=== PATIENT | female | born 1995 | race Caucasian/White ===

== ENCOUNTER 2019-08-25 16:58 | Inpatient (IN) | payer OTHER ==
[~2019-08-25] VITALS: Ht 172.7 cm; Wt 99.0 kg
[2019-08-25 17:38] VITALS: BP 141/81
[2019-08-25] MEDS ORDERED: LR 1,000 ML IV SCH (17:40)
[2019-08-25] MEDS ORDERED: LACTATED RINGER'S 1000 ML IV STA (17:40)
[2019-08-25] MEDS ORDERED: PRENTAB9 PO (17:57)
[2019-08-25] MEDS ORDERED: IRON27TA2 PO (17:57)
[2019-08-25] MEDS ORDERED: VITA500C24 PO (17:57)
[2019-08-25] MEDS ORDERED: miSOPROStol 50 MCG 1/2 TAB (S0191) SL ONE (19:00)
[2019-08-25 19:05] LABS: HEMATOCRIT 30.9 % (36.0-47.0); HEMOGLOBIN 10.1 g/dl (12.0-15.5); MEAN CORPUSCULAR HEMOGLOBIN 30.9 pg (27.0-33.0); MEAN CORPUSCULAR HGB CONC 32.7 g/dl (32.0-36.5); MEAN CORPUSCULAR VOLUME 94.5 fl (80.0-96.0); PLATELET COUNT, AUTOMATED 345 10^3/uL (150-450); RED BLOOD COUNT 3.27 10^6/uL (4.00-5.40); WHITE BLOOD COUNT 8.1 10^3/uL (4.0-10.0)
--- NOTE | 2019-08-25 19:41 | HPEPDOC ---
Obstetrical History & Physical General Date of Admission Aug 25, 2019 at 16:58 Primary Care Physician: Renetta Hernandez MD History of Present Illness OB Considerations: GHTN Hx of childhood asthma - last inhaler use in middle school Anemia - Admission HCT 30.9 VZV non immune 23y/o @ 37+3 wks by LMP c/w 9 wk US (JOSE DANIEL [id number]) presents for induction of labor for gestational hypertension. Patient denies contractions, LOF, vaginal bleeding. She endorses active movement. Reports mild headache this morning, now resolved. Denies RUQ pain/visual changes. Chief Complaint: Gestational Hypertension, Induction of labor Information Provided By: Patient Age: 23 : 3 Term: 2 Pre-term: 0 Abortions: 0 Livin Care Care: Good Care Dating Final EDC: Sep 12, 2019 Final EDC for Daily Update: Sep 12, 2019 Final EDC by: LMP LMP: Dec 06, 2018 1st Trimester Date: Feb 13, 2019 Estimated Date of Confinement: Sep 12, 2019 EGA at Admission: 37.3 Antepartum Course Diagnos(e)s Gestational Hypertension Asthma Anemia Height (inches): 68 Pre- weight (lbs.): 189 Admission Weight (lbs.): 217.8 Change in Weight (lbs.): 28.8 Past Medical History Past Obstetrical History #1: Past Obstetrical History: Multigravida Date of Delivery: Apr 05, 2013 Gestation: 38 Type of Delivery: Spontaneous Vaginal Del. Sex of Infant: Female Weight of Infant (grams): 7.11 Complications: No Past Obstetrical History #2: Past Obstetrical History: Multigravida Date of Delivery: March 05, 2018 Gestation: 38 Type of Delivery: Spontaneous Vaginal Del. 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 Past Medical History Medical History Asthma - no inhaler use since middle school Anemia - admission HCT 30.9 Surgical History: Denies/None Family History Family History Grandmother with breast cancer Denies uterine, ovarian or colon cancer Denies bleeding/clotting disorders Social History Marital Status: Family situation: Spouse/partner home Psychosocial History: No pertinent psych hx * Smoker: non-smoker Alcohol: Denies Drugs: denies Abuse Violence Screening Have you been hit/kicked/slapp: No Have you been sexually assault: No Imunizations Tdap status: needs Influenza Status: needs Allergies Coded Allergies: No Known Allergies (Unverified , 08/25/19) Medications Scheduled Ascorbic Acid (Vitamin C) 500 Mg Capsule, 500 MG PO BID Ferrous Gluconate (Iron) 236 Mg Tablet, 1 TAB PO BID No.137/Iron/Folic Acd ( Vitamin Tablet) 1 Each Tablet, 1 TAB PO DAILY Physical Examination Physical Examination GENERAL: Alert and oriented times three. BREAST: . ABDOMEN: Gravid and non-tender to touch. FETUS: Is vertex (VTX) by sterile vaginal examination (SVE), fetus is vertex (VTX) by Sam. Vertex by TAUS. EFW 3600g HEART RATE: Regular rate and rhythm. LUNGS: Clear to auscultation (CTA). EXTREMITIES: No edema. No clonus. Deep tendon reflexes (DTRs) + 2. Vital Signs/I&O BP 141/81 HR 16 RR 16 SpO2 100% RA Laboratory Data 24H LABS Laboratory Tests 2 08/25/19 17:22: Serology Scanned Report Hepatitis B Testing Pre-eclampsia profile Completed at [facility] on Oct: Pr/Cr Ratio: 0.157 24H Urine Protein: 133mg CBC: 6.90>10.8/32.4<396 AST 15 ALT 18 Cr 0.67 Pertinent Laboratoy Data Blood Type: AB+ RBC Antibody Screen: Negative HIV: Negative Hepatitis B: Negative Hepatitis C: Unknown Rapid Plasma Reagin: Nonreactive Rubella: Immune Varicella: Nonreactive Chlamydia/Gonorrhea: Negative Group B Streptococcus: Unknown Glucose Tolerance Test: 126 Anatomy Ultrasound Placenta Location: Anterior Normal Anatomy: Yes Placenta Previa: No Estimated Weight (grams): 655 Steroid Therapy Steroid Therapy: No Vaginal Examination Dilation: 2cm Effacement: 50% Station: -2 Cervical Consistency: Medium Cervical Position: Posterior Presentation: Cephalic presentation Position: Vertex (occiput) Assessment Variability: Moderate Accelerations: Other (Ideterminent baseline) Decelerations: Other (Ideterminent baseline) Heart Patterns: Tachycardia (Initially in 170s) Tocometer Contractions: Yes Frequency: irregular, greater than 15 min/apart Duration: less than 60 seconds Strength: palpated as mild Multi-drug resistant Organism: No history of MDRO Assessment/Plan Assessment 23y/o @ 37+3 wks admitted for induction of labor for gestational hypertension. Plan Admit and orient. Fluid bolus due to indeterminant baseline. Wholesale Account Manager and consent. Diet: Regular. Group B Streptococcus (GBS): Unk. Will treat with prolonged rupture or fever occur. Labs and intravenous (IV) per unit protocol. Counseled on Pitocin and induction of labor (IOL). Lactated Ringers (LR): Bolus 1,000 mL, then at 125 mL/hr. Continue to monitor BPs, IV antihypertensives/magnesium sulfate as indicated for persistent HTN >160/110. Anticipate normal spontaneous delivery (). C-S as appropriate. Labor and Delivery Counseling Discussed with patient procedures performed on labor and delivery to include external monitoring and tocometry. Discussed use of internal monitoring with FSE/IUPC. Discussed induction of labor methods and medication for pain control. Discussed episiotomy and tearing to vagina, both of which would be repaired with absorbable sutures that would dissolve on their own. Discussed use of forceps and/or vacuum to assist with delivery. Discussed risks of delivery to include infection, treated with antibiotics, bleeding which may require a blood transfusion with subsequent risk of blood borne illness (hepatitis/HIV) or transfusion reaction. Discussed risks of delivery including injury to baby, need for emergency , need for additional procedures, as indicated. All questions were answered to patent's apparent satisfaction. Renetta Hernandez MD Aug 25, 2019 18:13
[2019-08-25 20:32] VITALS: BP 134/71
[2019-08-25 22:26] VITALS: BP 140/88
[2019-08-26] VITALS (13 sets, daily range): BP systolic 117–177; BP diastolic 59–84
[2019-08-26] MEDS ORDERED: OXYTOCIN 30 UNITS IN 0.9% NaCl 500ML IV BAG (J2590) As Ordered ONE (00:57)
--- NOTE | 2019-08-26 01:02 | IPNPDOC ---
Text Note Date of Service The patient was seen on 08/26/19. NOTE Ob Considerations: Anemia HCT 30.9 GHTN Childhood asthma 23y/o @ 37+4 wks admitted for induction of labor for gestational hypertension. To room 4 hours s/p Cytotec. Patient reports feeling contractions, some stronger than others. VS: Reviewed Normotensive to mild range NST: 145, mod duglas +accels, no decels TOCO: not picking up contractions while patient on her side DCE: /-1, Cephalic, Mid, Medium consistency A/p: 23y/o @ 37+4 wks admitted for IOL for GHTN. Normal to mild range BPs. -GBS swab collected Sunday; still pending in [facility]. Will treat with fever, ROM > 18 hrs -Begin Pitocin per protocol -Repeat DCE 4-6 hours or sooner PRN; will consider AROM with next exam -Continuous monitoring -All questions answered to patient's apparent satisfaction VS,Yuly, I+O VS, Eanbone, I+O Laboratory Tests 08/25/19 18:47 Vital Signs Date Time Temp Pulse Resp B/P (MAP) Pulse Ox O2 Delivery O2 Flow Rate FiO2 08/25/19 17:38 98.6 85 16 141/81 (101) 100 Room Air I&O- Last 24 Hours up to 6 AM 08/26/19 05:59 Intake Total 1500 ml Output Total 450 ml Balance 1050 ml Renetta Hernandez MD Aug 26, 2019 01:01
[2019-08-26] MEDS ORDERED: OXYTOCIN DRIP 30 UNITS in IV 1 EA IV SCH ×2 (01:15→04:14)
[2019-08-26] MEDS ORDERED: NALBUPHINE HCL 10 MG/ML AMP (J2300) IV PRN (02:00)
[2019-08-26] MEDS ORDERED: NALBUPHINE HCL 10 MG/ML AMP (J2300) IM PRN (02:00)
[2019-08-26] MEDS ORDERED: RHOGAM 300 MCG (1500 IU) INJ (J2790) IM SCH (04:15)
[2019-08-26] MEDS ORDERED: IBUPROFEN 800 MG TAB PO PRN (04:15)
[2019-08-26] MEDS ORDERED: IBUPROFEN 600 MG TAB PO PRN (04:15)
[2019-08-26] MEDS ORDERED: ACETAMINOPHEN TAB 650MG DOSE (2X325MG) PO PRN (04:15)
[2019-08-26] MEDS ORDERED: METHYLERGONOVINE MALEATE 0.2 MG TAB PO PRN (04:15)
[2019-08-26] MEDS ORDERED: DIBUCAINE 1% OINTMENT 30GM TOP PRN (04:15)
[2019-08-26] MEDS ORDERED: MEASLES,MUMPS,RUBELLA VACCINE INJ (MMR-II) (90707) SC SCH (04:15)
[2019-08-26] MEDS ORDERED: DOCUSATE SODIUM 100 MG CAP PO PRN (04:15)
[2019-08-26] MEDS ORDERED: ACETAMINOPHEN 500 MG TAB PO PRN (04:15)
[2019-08-26] MEDS: PRENATAL VITAMINS CHEWABLE TABLET PO SCH (09:17)
[2019-08-27 06:02] VITALS: BP 129/63
[2019-08-27] MEDS ORDERED: IBUP80TA PO (07:35)
[2019-08-27] MEDS ORDERED: DIBU10OI TOP (07:35)
[2019-08-27] MEDS ORDERED: DOCU100C16 PO (07:35)
[2019-08-27] MEDS ORDERED: ACET-683 PO (07:35)
[2019-08-27] MEDS ORDERED: INFLUENZA QUADRIVALENT PF VACCINE 0.5ML SYRINGE (90686) IM ONE (09:00)
[2019-08-27] MEDS: PRENATAL VITAMINS CHEWABLE TABLET PO SCH (10:29)
--- NOTE | 2019-08-27 10:59 | DSES ---
DATE OF ADMISSION: 08/25/2019 DATE OF DISCHARGE: 08/27/2019 23-year-old 3 now para 3 was admitted for induction of labor at 37 and 3 weeks of gestation because of gestational hypertension. Had an epidural in place, spontaneous vaginal delivery female 5 pounds 15 ounces, scores and gram weight are undisclosed. On her first day we discussed phlebitis, cystitis, mastitis, endometritis, cellulitis, diet, exercise, pain management, perineal, breast and wound care. The patient is presently breast-feeding, requesting discharge as she has two other siblings at home. Admitting hemoglobin 10.1, hematocrit 30.9 and platelets were 345. Her day 1 blood pressure 129/60, respirations 16, pulse 63 and temperature is 99.0. The rest of the examination was unremarkable. She is normocephalic, atraumatic. Neck full range of motion. Pupils equal and reactive to light. Distal pulses symmetric. No evidence of DVT, PE or superficial phlebitis. Chest is clear bilaterally to bases. No wheezes or rhonchi. No CVA tenderness. She had a she is presently breast-feeding and doing well, anxious to go home. Medications were dispensed at [facility] and this was communicated to the patient. 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 All questions were answered. 20-minute discussion. edited: 08/28/2019 0718 pedro luis MORENO
--- NOTE | 2019-09-02 16:14 | DNPDOC ---
[facility] Delivery Note Delivery Note DATE OF DELIVERY: [id number] PREDELIVERY DIAGNOSIS: 37+4/7 weeks' gestation and labor. POST DELIVERY DIAGNOSIS: Delivered. PROCEDURE: Spontaneous vaginal delivery. TURPENTINE FARMER: Dr. Hernandez ANESTHESIA: None ESTIMATED BLOOD LOSS: 100 mL. FINDINGS: 5 pound 15 ounce female infant, Score 9/9, no nuchal cord. DELIVERY SUMMARY: Patient is a 23-year-old 3 now para 2002 who was admitted to labor and delivery induction of labor for gestational hypertension. She received single dose of Cytotec and was started on Pitocin. She progressed with Nubain for analgesia to C/C/+3 at which time provider was called to the room. With excellent maternal effort, delivered OA, restituted ROT. The left anterior shoulder delivered with gentle downward traction and right posterior shoulder delivered with upward guidance. No nuchal cord noted. Cord was clamped x2 and cut by patient. to maternal chest. Cord blood collected for analysis. The placenta delivered intact, marginal insertion, 3vc. Fundus firm at U-2. Systematic examination revealed an intact perineum. Sponge count correct x2. Mother and infant stable when provider left the room. EBL 100cc. Renetta Hernandez MD Aug 26, 2019 04:09
== END 2019-08-27 12:40 | disposition home or self-care (01) | DRG 807 ==
LOC: M LDI 16:58 → M OBS 08-26 06:47
PROVIDERS: ADMIT Obstetrics & Gynecology; ATTEND Obstetrics & Gynecology
PROC: 3E0P7GC Introduction of Other Therapeutic Substance into Female Reproductive, Via Natural or Artificial Opening (ICD-10-PCS; 2019-08-25)
PROC: 10E0XZZ Delivery of Products of Conception, External Approach (ICD-10-PCS; principal; 2019-08-26)
DX: O13.4 Gestational [pregnancy-induced] hypertension without significant proteinuria, complicating childbirth (principal); Z37.0 Single live birth; Z3A.37 37 weeks gestation of pregnancy; O99.02 Anemia complicating childbirth; D64.9 Anemia, unspecified

== ENCOUNTER → 2020-04-06 | Outpatient (CLI) | payer OTHER ==
[~2020-04-06] MED LIST: ACET-683 PO; DIBU10OI TOP; DOCU100C16 PO; IBUP80TA PO; IRON27TA2 PO; PRENTAB9 PO; VITA500C24 PO
--- NOTE | 2020-04-06 23:35 | REP ---
RIGHT BREAST ULTRASOUND: Real-time sonographic evaluation of right breast performed. Patient has a history of clear nipple discharge with painful palpable lump upper outer quadrant. Ultrasound of this area demonstrates no discrete cystic or solid mass. IMPRESSION: ACR 2, benign. No discrete cystic or solid mass seen in the upper outer right breast at the site of the reported palpable lump. Clinical correlation and followup recommended.
== END ==
LOC: M WHC 14:19
PROVIDERS: ATTEND Nurse Practitioner
DX: N63.11 Unspecified lump in the right breast, upper outer quadrant (principal); N64.52 Nipple discharge; Z80.3 Family history of malignant neoplasm of breast

== ENCOUNTER 2021-02-02 20:01 | Inpatient (IN) | payer OTHER ==
[~2021-02-02] VITALS: Ht 172.7 cm; Wt 101.1 kg
[2021-02-02 20:23] VITALS: BP 139/81
[2021-02-02] MEDS ORDERED: LACTATED RINGER'S 1000 ML IV STA (20:34)
[2021-02-02] MEDS ORDERED: LR 1,000 ML IV SCH (20:34)
[2021-02-02] MEDS ORDERED: OXYTOCIN DRIP 30 UNITS in IV 1 EA IV PRN (20:35)
--- NOTE | 2021-02-02 21:05 | HPEPDOC ---
Obstetrical History & Physical General Date of Admission Feb 02, 2021 at 20:47 History of Present Illness 25 yo at 38+2 weeks gestation presented to L&D with the complaint of re gular, painful contractions. She denies any vaginal bleeding or leakage of fluid. She endorses feeling movement. Chief Complaint: Contractions, term Information Provided By: Patient Age: 25 : 4 Term: 3 Pre-term: 0 Abortions: 0 Livin Care Care: Good Care Dating Final EDC: Feb 14, 2021 Final EDC for Daily Update: Feb 14, 2021 Final EDC by: LMP (JOSE DANIEL set by LMP of [id number] c/w 12+3 week US on [id number]) LMP: May 10, 2020 1st Trimester Date: Aug 05, 2021 Antepartum Course Diagnos(e)s Short interval Obesity --> pre BMI 30 Hx of GHTN ---> normal baseline labs Anemia History of depression Hx of asthma Past Medical History Past Obstetrical History : Past Obstetrical History: Multigravida ( in 2012, 2017, and 2018 --> pelvis proven to 7lbs 11oz) 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 Past Medical History Medical History Asthma PPD depression obesity Surgical History: Denies/None Family History Significant Family History: No pertinent family hx Social History Marital Status: Family situation: Spouse/partner home Psychosocial History: Other (History of PPD depression and was previously on zoloft for 3 months) * Smoker: non-smoker Alcohol: Denies Drugs: denies Imunizations Tdap status: current Influenza Status: declined Allergies Coded Allergies: No Known Allergies (Unverified , 02/02/21) Medications Scheduled Ascorbic Acid (Vitamin C) 500 Mg Capsule, 500 MG PO BID Ferrous Gluconate (Iron) 236 Mg Tablet, 1 TAB PO BID No.137/Iron/Folic Acd ( Vitamin Tablet) 1 Each Tablet, 1 TAB PO DAILY Scheduled PRN Acetaminophen (Acetaminophen) 500 Mg Tablet, 1,000 MG PO Q6HP PRN for PAIN SCALE 6-10 Dibucaine (Dibucaine) 28 Gm Oint...g., 0 DOSE TOP Q4HP PRN for PAIN Docusate Sodium (Docusate Sodium) 100 Mg Capsule, 100 MG PO QHSP PRN for CONSTIPATION Ibuprofen (Ibuprofen) 800 Mg Tablet, 800 MG PO Q8HP PRN for PAIN SCALE 6-10 Physical Examination Physical Examination GENERAL: Alert and oriented times three. ABDOMEN: Gravid and non-tender to touch. FETUS: Is vertex (VTX) by sterile vaginal examination (SVE), EXTREMITIES: No edema. Laboratory Data Urine Culture: No Growth Pertinent Laboratoy Data Blood Type: AB+ RBC Antibody Screen: Negative HIV: Negative Hepatitis B: Negative Hepatitis C: Unknown Rapid Plasma Reagin: Nonreactive Rubella: Immune Varicella: Immune Chlamydia/Gonorrhea: Negative Group B Streptococcus: Negative Quad Screen Test: Declined Cystic Fibrosis: Unknown Glucose Tolerance Test: 88 (early 1hr GTT 88, repeat 120) Anatomy Ultrasound Ultrasound Date: Sep 28, 2020 Placenta Location: Anterior Normal Anatomy: Yes Placenta Previa: No Steroid Therapy Steroid Therapy: No Vaginal Examination Dilation: 7 cm Effacement: 90% Station: -1 Cervical Consistency: Soft Cervical Position: Anterior Presentation: Cephalic presentation Position: Vertex (occiput) Assessment Heart Rate (FHR): 135 Variability: Moderate Accelerations: Positive Decelerations: None Tocometer Contractions: Yes Frequency: regular, every 1-3 min. Strength: palpated as strong Assessment/Plan Assessment 25 yo at 38+2 weeks gestation presented to L&D in active labor. Plan Admit for expectant management of labor. Will augment as clinically indicated. Apply IV fluids. Labs per L&D protocol. Clear liquid diet. GBS negative. Patient may have epidural if desired. Anticipate . Labor and Delivery Counseling Labor and Delivery counseling We will deliver your baby through the vagina with possible assistance of forceps or vacuum device if needed for maternal or indications. Forceps and vacuum are devices that can assist with vaginal delivery when normal pushing efforts cannot achieve delivery on their own or when delivery is needed in an emergency for baby's well-being. Medications may be required to induce or augment (help) your labor in order to achieve a vaginal delivery. An episiotomy may be required to help your baby to delivery vaginally. You may also require repair of any lacerations or tears of your vagina or vulva that are caused by delivery. In some cases, emergencies can occur that require an emergency section delivery so quickly that there may not be enough time to stop and complete consent forms for section. Understand that if this occurs, your providers will discuss the need for a section with you before they proceed with surgery. section is the delivery of your baby through an incision in your abdomen. In some situations, section may be safer to mom and baby than continuing labor and is only performed when clinically indicated. Risks of vaginal delivery include but are not limited to: Bleeding, infection, injury to the vagina, pelvic structures, injury to baby, damage to the uterus, reactions to anesthesia, uterine rupture, risk of hysterectomy for life threatening bleeding, or . Medications used to induce or augment labor may increase your risk for infection, uterine tachysystole, uterine rupture, heart rate abnormalities, need for emergency delivery or possible hysterectomy, and hemorrhage. Additional risks for use of forceps and vacuum include: increased risk of perineal and vaginal lacerations, risk of urinary or bowel incontinence, increased risk of injury to baby with bruising, scratches, hematomas on the head, or intracranial bleeding. Ms. Hicks appears to understand these risks and elects to proceed with her labor at this location. She also consents to a blood transfusion if necessary. All patient questions answered. DO FEDERICO Perez CHRISTOPHER J. DO Feb 02, 2021 21:05
[2021-02-02 21:09] LABS: HEMATOCRIT 30.7 % (36.0-47.0); HEMOGLOBIN 9.7 g/dl (12.0-15.5); MEAN CORPUSCULAR HEMOGLOBIN 27.9 pg (27.0-33.0); MEAN CORPUSCULAR HGB CONC 31.6 g/dl (32.0-36.5); MEAN CORPUSCULAR VOLUME 88.2 fl (80.0-96.0); PLATELET COUNT, AUTOMATED 318 10^3/uL (150-450); RED BLOOD COUNT 3.48 10^6/uL (4.00-5.40); WHITE BLOOD COUNT 6.8 10^3/uL (4.0-10.0)
[2021-02-02] MEDS ORDERED: OXYTOCIN DRIP 30 UNITS in IV 1 EA IV SCH (21:46)
[2021-02-02] MEDS ORDERED: RHOGAM 300 MCG (1500 IU) INJ (J2790) IM SCH (21:50)
[2021-02-02] MEDS ORDERED: ACETAMINOPHEN TAB 650MG DOSE (2X325MG) PO PRN (21:50)
[2021-02-02] MEDS ORDERED: IBUPROFEN 800 MG TAB PO PRN (21:50)
[2021-02-02] MEDS ORDERED: ACETAMINOPHEN 500 MG TAB PO PRN (21:50)
[2021-02-02] MEDS ORDERED: DIBUCAINE 1% OINTMENT 30GM TOP PRN (21:50)
[2021-02-02] MEDS ORDERED: MEASLES,MUMPS,RUBELLA VACCINE INJ (MMR-II) (90707) SC SCH (21:50)
[2021-02-02] MEDS ORDERED: DOCUSATE SODIUM 100MG CAPSULE PO PRN (21:50)
--- NOTE | 2021-02-02 21:57 | DNPDOC ---
[facility] Delivery Note Delivery Note DATE OF DELIVERY: 02Feb2021 at ~2130 PREDELIVERY DIAGNOSIS: 38+2 weeks' gestation and active labor. POST DELIVERY DIAGNOSIS: Delivered. PROCEDURE: Spontaneous vaginal delivery ANESTHESIA ASSISTANT: Dr. Hernandez ANESTHESIA: None ESTIMATED BLOOD LOSS: 200 mL. FINDINGS: 7 pound 8 ounce male infant, Score 9/9, Footling cord X2 DELIVERY SUMMARY: Monika progressed rapidly to C/C/+1 and felt a strong urge to push. AROM was performed productive of clear fluid. The bed was broken down and she was prepped for delivery. With excellent effort Monika's delivered in less than 5 minutes of pushing. Presentation was CAYLA with restitution to ROT. The left anterior shoulder delivered with gentle guidance followed easily by the remainder of the body. There was a double footling cord that was reduced after delivery. The baby was dried and stimulated on the field and a bulb suction was used. The cried vigorously and was placed on the maternal abdomen for skin to skin contact. The three vessel cord was then clamped and cut by the infant's mother under my direction and after an appropriate time delay. 3rd stage was completed with gentle traction on the cord and it was productive of an intact placenta. The uterine fundus was firmed with massage and pitocin was administered IV bolus. Inspection of the cervix, vagina, labia, and perineum revealed no lacerations. The fundus was palpated again and was firm. Sponge and instrument counts were correct X2. Mother and stable when I left the room. DO FEDERICO Perez CHRISTOPHER J. DO Feb 02, 2021 21:57
[2021-02-02 22:58] VITALS: BP 128/70
--- NOTE | 2021-02-03 06:41 | IPNPDOC ---
Progress Note Date of Service: Feb 03, 2021 Progress Note Ms. Hicks is a 25 yo G4 now P4 who underwent an uncomplicated yesterday evening around 0 after being admitted for active labor. She is recovering on the unit. No acute events overnight. This morning Monika is overall doing well. She is ambulating, voiding, tolerating a regular diet, has minimal pain, and minimal lochia. Vitals - VSS, afebrile normotensive, non tachycardic General - AAOX3, sitting up in bed, pleasant and conversant, NAD Abdomen - Fundus firm at U-2. No fundal tenderness Extremities - No edema Urine output - appropriate Monika is doing well and is making an appropriate recovery. Continue to encourage ambulation and . Continue routine care. Anticipate discharge home tomorrow. Opal Hernandez DO VS, I&O, 24H, Fishbone Vital Signs/I&O Vital Signs Date Time Temp Pulse Resp B/P (MAP) Pulse Ox O2 Delivery O2 Flow Rate FiO2 02/02/21 22:58 97.9 56 16 128/70 (89) I&O- Last 24 Hours up to 6 AM 02/03/21 06:00 Output Total 200 ml Balance -200 ml Laboratory Data 24H LABS Laboratory Tests 2 02/02/21 20:50: Nucleated Red Blood Cells % (auto) 0.0, Syphilis Serology NONREACTIVE 02/02/21 20:52: Serology Scanned Report Hepatitis B Testing CBC/BMP Laboratory Tests 02/02/21 20:50 OPAL HERNANDEZ DO Feb 03, 2021 06:41
[2021-02-03] MEDS: PRENATAL VITAMINS CHEWABLE TABLET PO SCH (08:15)
[2021-02-03] MEDS: IBUPROFEN 600MG TAB PO PRN ×2 (12:09→20:25)
[2021-02-03 18:00] VITALS: BP 131/70
[2021-02-04 05:43] VITALS: BP 127/77
--- NOTE | 2021-02-04 07:31 | IPNPDOC ---
Progress Note Date of Service: Feb 04, 2021 Day#: 2 Progress Note SUBJECT: Monika is a 25year-old 4 now Para 3003 status post uncomplicated spontaneous vaginal delivery at 38+2 weeks' at approximately 2130 hours [id number] of a Male , doing well day #2. She has been ambulating, voiding spontaneously without issue and tolerating regular diet. Breast feeding without issue. Reports lochia is continuing to lighten. OBJECTIVE: VITAL SIGNS: Within normal limits, afebrile. Alert and oriented times three. Abdomen: Fundus firm at U-2. Soft, NTTP. Scant lochia. ASSESSMENT: PP Day #2, normal involution, stable and progressing well. without issue. PLAN: 1. Discharge to home today. 2. Tylenol and Motrin for pain. 3. Encourage breast feeding on demand and ambulation. 4. Minipill for contraception for now, desires Nexplanon and spouse to have vasectomy. 5. Routine PP visit in 6 weeks in clinic. 6. Discussed return precautions at length. VS, I&O, 24H, Fishbone Vital Signs/I&O Vital Signs Date Time Temp Pulse Resp B/P (MAP) Pulse Ox O2 Delivery O2 Flow Rate FiO2 02/04/21 05:43 97.4 66 16 127/77 (94) 99 Room Air SUSANA KENNY CNM Feb 04, 2021 07:31
--- NOTE | 2021-02-04 07:37 | OBDS ---
[facility] Obstetrical Discharge Sum. Obstetrical Discharge Summary Date: Feb 04, 2021 : 4 Term: 3 Pre-term: 0 Abortions: 0 Livin Infant Sex: Male Weight: pounds (7), ounces (8) A/P, Post Course List any complications Admission diagnosis: Labor Discharge diagnosis: Delivered Condition at Discharge: Stable Discharge Instructions: Discharged to home with return and safety precautions. Activity: Ad Jhoana; rest as needed, encourage frequent . Diet: Regular Medications: Routine PP meds and mini-pill at [facility] Follow-up: routine PP appointment at 6 weeks. SUSANA KENNY CNM Feb 04, 2021 07:37
[2021-02-04] MEDS ORDERED: INFLUENZA QUADRIVALENT PF VACCINE 0.5ML SYRINGE IM ONE (09:00)
[2021-02-04] MEDS: PRENATAL VITAMINS CHEWABLE TABLET PO SCH (09:02)
[2021-02-04 09:59] VITALS: BP 127/77
== END 2021-02-04 12:25 | disposition home or self-care (01) | DRG 807 ==
LOC: M LDO 20:01 → M LDI 20:47 → M OBS 22:47
PROVIDERS: ADMIT Obstetrics & Gynecology; ATTEND Obstetrics & Gynecology
PROC: 10E0XZZ Delivery of Products of Conception, External Approach (ICD-10-PCS; principal; 2021-02-02)
PROC: 10907ZC Drainage of Amniotic Fluid, Therapeutic from Products of Conception, Via Natural or Artificial Opening (ICD-10-PCS; 2021-02-02)
DX: O99.214 Obesity complicating childbirth (principal); Z37.0 Single live birth; E66.9 Obesity, unspecified; O99.02 Anemia complicating childbirth; D64.9 Anemia, unspecified; O69.82X0 Labor and delivery complicated by other cord entanglement, without compression, not applicable or unspecified; Z3A.38 38 weeks gestation of pregnancy